=== PATIENT | female | born 2000 | race Two or more races ===

== ENCOUNTER 2018-10-04 12:17 | Emergency (ER) | payer SELFPAY ==
[~2018-10-04] VITALS: Ht 165.1 cm; Wt 90.7 kg
--- NOTE | 2018-10-04 13:28 | PHYS DOC ---
Past Medical History Past Medical History: No Pertinent History Past Surgical History: No Surgical History Alcohol Use: None Drug Use: None Adult General Chief Complaint Chief Complaint: VOMITING IN HPI HPI 17-year-old female presents to ER with complaints N/V/D since Tuesday-and thinks she is approximately 7 weeks . She reports last week she had a positive urine test at [facility]. Patient reports her symptoms started Rey and she has had multiple episodes of vomiting and had diarrhea start yesterday. Patient reports over the past 2 days she has had some vaginal spotting as she had blood on her toilet paper and in her panties. Patient reports she has had intermittent lower abdominal cramping over the past few days. At this time patient is denying any abdominal pain but is stating she feels nauseated. Patient denies fever, dysuria, or fatigue. LMP 08/10/18. 1 para 0. Review of Systems Review of Systems Constitutional: Denies fever or chills [] HENT: Denies sore throat [] Respiratory: Denies cough or shortness of breath [] Cardiovascular: Nice chest pain or palpitations GI: Denies bloody stools. Reports lower abdominal cramping, nausea and vomiting , and diarrhea. At time of initial exam denies abdominal pain : Denies dysuria or hematuria. Reports having blood on toilet paper and pain is over the past couple of days reporting small amount denying active vaginal bleeding. Musculoskeletal: Denies back pain Integument: Denies rash, swelling or skin lesions [] Neurologic: Denies headache, focal weakness or sensory changes. Denies dizziness Endocrine: Denies polyuria or polydipsia [] All other systems were reviewed and found to be within normal limits, except as documented in this note. Current Medications Current Medications Current Medications Medications (Trade) Dose Ordered Sig/John Start Time Stop Time Status Last Admin Dose Admin Metoclopramide HCl (Reglan Vial) 10 mg 1X ONCE 10/04/18 13:30 10/04/18 14:01 DC 10/04/18 13:30 10 MG Ondansetron HCl (Zofran) 4 mg 1X ONCE 10/04/18 16:15 10/04/18 16:16 DC Sodium Chloride 1,000 ml @ 1,000 mls/hr 1X ONCE 10/04/18 13:30 10/04/18 14:29 DC 10/04/18 14:14 1,000 MLS/HR Allergies Allergies Allergies Coded Allergies Type Severity Reaction Last Updated Verified No Known Drug Allergies 10/04/18 No Physical Exam Physical Exam Constitutional: Well developed, well nourished, no acute distress, non-toxic appearance. [] HENT: Normocephalic, atraumatic, oropharynx dry/pink, nose normal. [] Eyes: Pupils equal, conjunctiva normal, no discharge. [] Neck: Normal range of motion, no tenderness, supple, no stridor. [] Cardiovascular: Heart rate regular rhythm, no murmur [] Lungs & Thorax: Bilateral breath sounds clear to auscultation. Resp. equal/ nonlabored Abdomen: Bowel sounds normal, soft-no distention or rigidity, no tenderness Skin: Warm, dry, no erythema, no rash. [] Back: No tenderness, no CVA tenderness. [] Extremities: No tenderness, no cyanosis, no clubbing, ROM intact, no edema. [] Neurologic: Alert and oriented X 3, normal motor function, normal sensory function, no focal deficits noted. [] Psychologic: Affect normal, judgement normal, mood normal. [] Current Patient Data Vital Signs Vital Signs Date Time Temp Pulse Resp B/P (MAP) Pulse Ox O2 Delivery O2 Flow Rate FiO2 10/04/18 17:15 67 16 120/71 (87) 98 Room Air 10/04/18 13:14 98.2 98.2 Lab Values Laboratory Tests Test 10/04/18 12:55 10/04/18 13:00 10/04/18 14:35 10/04/18 14:50 Urine Collection Type Unknown Urine Color Marina Urine Clarity Cloudy Urine pH 7.5 Urine Specific Shafer >=1.030 Urine Protein 30 mg/dL (NEG-TRACE) Urine Glucose (UA) Negative mg/dL (NEG) Urine Ketones (Stick) >=80 mg/dL (NEG) Urine Blood Negative (NEG) Urine Nitrite Negative (NEG) Urine Bilirubin Small (NEG) Urine Urobilinogen Dipstick 1.0 mg/dL (0.2 mg/dL) Urine Leukocyte Esterase Moderate (NEG) Urine RBC 0 /HPF (0-2) Urine WBC 1-4 /HPF (0-4) Urine Squamous Epithelial Cells Many /LPF Urine Bacteria Few /HPF (0-FEW) Urine Mucus Marked /LPF POC Urine HCG, Qualitative Hcg positive (Negative) Maternal Serum HCG Beta Subunit 03992 mIU/mL (0-5) H Sodium Level 138 mmol/L (136-145) Potassium Level 3.7 mmol/L (3.5-5.1) Chloride Level 102 mmol/L (98-107) Carbon Dioxide Level 24 mmol/L (21-32) Anion Gap 12 (6-14) Blood Urea Nitrogen 14 mg/dL (7-20) Creatinine 0.7 mg/dL (0.6-1.0) Estimated GFR (Cockcroft-Gault) 107.8 BUN/Creatinine Ratio 20 (6-20) Glucose Level 97 mg/dL (70-99) Calcium Level 9.1 mg/dL (8.5-10.1) Total Bilirubin 0.7 mg/dL (0.2-1.0) Aspartate Amino Transferase (AST) 16 U/L (15-37) Alanine Aminotransferase (ALT) 28 U/L (14-59) Alkaline Phosphatase 86 U/L (46-116) Total Protein 6.9 g/dL (6.4-8.2) Albumin 3.6 g/dL (3.4-5.0) Albumin/Globulin Ratio 1.1 (1.0-1.7) Lipase 83 U/L (73-393) White Blood Count 11.2 x10^3/uL (4.0-11.0) H Red Blood Count 4.19 x10^6/uL (3.50-5.40) Hemoglobin 13.2 g/dL (12.0-15.5) Hematocrit 37.9 % (36.0-47.0) Mean Corpuscular Volume 90 fL (79-100) Mean Corpuscular Hemoglobin 31 pg (25-35) Mean Corpuscular Hemoglobin Concent 35 g/dL (31-37) Red Cell Distribution Width 12.8 % (11.5-14.5) Platelet Count 248 x10^3/uL (140-400) Neutrophils (%) (Auto) 79 % (31-73) H Lymphocytes (%) (Auto) 13 % (24-48) L Monocytes (%) (Auto) 7 % (0-9) Eosinophils (%) (Auto) 1 % (0-3) Basophils (%) (Auto) 1 % (0-3) Neutrophils # (Auto) 8.8 x10^3uL (1.8-7.7) H Lymphocytes # (Auto) 1.5 x10^3/uL (1.0-4.8) Monocytes # (Auto) 0.8 x10^3/uL (0.0-1.1) Eosinophils # (Auto) 0.1 x10^3/uL (0.0-0.7) Basophils # (Auto) 0.1 x10^3/uL (0.0-0.2) Laboratory Tests 10/04/18 14:50 Laboratory Tests 10/04/18 14:35 Microbiology 10/04/18 Wet Prep - Final, Complete EKG EKG [] Radiology/Procedures Radiology/Procedures Pelvic Exam: VANITA Vann present 1350 Abdomen: Nontender External Genitalia: Normal Skin-no lesions or rash Speculum: Normal vaginal mucosa-no erythema, cervix closed, normal cervical discharge-scant amount of white discharge in vaginal vault no visible blood or clots Bimanual: No adnexal masses or tenderness, No CMT PROCEDURE: OB <14 WKS W/TV Obstetrical ultrasound, 10/04/2017: HISTORY: , vomiting Transabdominal and transvaginal scans were obtained. The uterus contains a 2 cm fluid collection compatible with a gestational sac. This suggests a gestational age of 6 weeks and 6 days. There are faint echoes within the fluid. No yolk sac or pole is evident. This is abnormal indicating a nonviable . The ovaries are within normal limits in size. There is blood flow in both ovaries. No adnexal mass is seen. No free fluid is evident in the pelvis. IMPRESSION: Nonviable early intrauterine . Electronically signed by: Alvin Antoine MD (10/04/2018 3:53 PM) [facility] DICTATED and SIGNED BY: ALVIN ANTOINE MD DATE: 10/04/18 1548 Course & Med Decision Making Course & Med Decision Making Pertinent Labs and Imaging studies reviewed. (See chart for details) Patient was evaluated in the ER for complaints of ongoing nausea and vomiting since Tuesday and having prior urine test came in for further evaluation. Patient had labs and treatment with IV fluids and nausea medication. With patient reporting she had had vaginal spotting ultrasound was obtained. Test results were discussed with patient. Patient's ultrasound report "uterus contains a 2 cm fluid collection compatible with a gestational sac. This suggests a gestational age of 6 weeks and 6 days. There are faint echoes within the fluid. No yolk sac or pole is evident. This is abnormal indicating a nonviable ". This was discussed indepth- [place] [id number]. UA with moderate leuks >80 ketones neg blood and micro with 1-4 WBCs. Patient was O+. Wet mount neg. for yeast/trich and GC/Chlam. cxs pending. Discussed need for f/u with [facility] for recheck of HCG quant and for further care for concerns nonviable per US results. Pt verbalized understanding and has handled test results well. Pt had NL pelvic exam with no blood in vaginal vault with cervix closed. Pt during discharge discussion denied abd pain and reports she was feeling much better following IV flds/ nausea meds. Pt was nontoxic in appearance and had tolerated PO challenge without c/o nausea or episodes of vomiting. Will provide [facility] referral information with discharge paperwork. Patient will also be provided with community clinic information for follow-up purposes as well. Patient advised on calling as soon as possible to schedule appointment with [facility] HE[facility]GER to be evaluated within 48 hours patient verbalized understanding and plans to call us soon as possible. Encouraged to increase fluid intake. Patient advised on Tylenol for pain as needed. Education provided on signs and symptoms to return to ER for an discharge instructions were discussed. Dragon Disclaimer Dragon Disclaimer This electronic medical record was generated, in whole or in part, using a voice recognition dictation system. Departure Departure Impression: Primary Impression: Threatened miscarriage in early Additional Impression: UTI (urinary tract infection) Disposition: 01 HOME, SELF-CARE Condition: STABLE Referrals: NO PCP (PCP) LETTY ESTES Jr, MD Patient Instructions: Threatened Miscarriage, Urinary Tract Infection Additional Instructions: Drink plenty of fluids and eat well-balanced meal. You need to have your hCG quantitative level which shows the level of your rechecked via lab work. This should be done in 48 hours by your OB/ SEARCH ENGINE MARKETING SPECIALIST if unable to get into your doctor return to the emergency department to have recheck of this blood test. Call as soon as possible to schedule appointment with [facility] HE[facility]GER. Scripts Nitrofurantoin Monohyd/M-Cryst (MACROBID 100 MG CAPSULE) 100 Mg Capsule 1 CAP PO BID, #10 CAP 0 Refills Prov: SCHUYLER FRANCISCO APRN 10/04/18 Problem Qualifiers SCHUYLER FRANCISCO APRN Oct 04, 2018 13:28
[2018-10-04] MEDS ORDERED: METOCLOPRAMIDE HCL 10 MG/2 ML VIAL. IV ONE (13:30)
[2018-10-04] MEDS ORDERED: IV NORMAL SALINE 1000ML BAG 1,000 ML IV ONE (13:30)
[2018-10-04 13:46] LABS: BILIRUBIN,URINE SMALL (NEG); CLARITY,URINE CLOUDY; COLOR,URINE AMBER; NITRITE,URINE NEGATIVE (NEG); PH,URINE 7.5; PROTEIN,URINE 30 mg/dL (NEG-TRACE)
[2018-10-04 14:31] LABS: BACTERIA,URINE FEW /HPF (0-FEW); RBC,URINE 0 /HPF (0-2); SQUAMOUS EPITHELIAL CELL,UR MANY /LPF
[2018-10-04 15:04] LABS: CALCIUM 9.1 mg/dL (8.5-10.1); CREATININE 0.7 mg/dL (0.6-1.0); GFR 107.8; POTASSIUM 3.7 mmol/L (3.5-5.1)
[2018-10-04 15:07] LABS: BASO # 0.1 x10^3/uL (0.0-0.2); BASO % 1 % (0-3); EOS # 0.1 x10^3/uL (0.0-0.7); EOS % 1 % (0-3); HEMATOCRIT 37.9 % (36.0-47.0); HEMOGLOBIN 13.2 g/dL (12.0-15.5); LYMPH # 1.5 x10^3/uL (1.0-4.8); LYMPH % 13 % (24-48); MEAN CORPUSCULAR HEMOGLOBIN 31 pg (25-35); MEAN CORPUSCULAR HGB CONC 35 g/dL (31-37); MEAN CORPUSCULAR VOLUME 90 fL (79-100); MONO # 0.8 x10^3/uL (0.0-1.1); MONO % 7 % (0-9); NEUT # 8.8 x10^3uL (1.8-7.7); NEUT % 79 % (31-73); PLATELET COUNT 248 x10^3/uL (140-400); RED BLOOD COUNT 4.19 x10^6/uL (3.50-5.40); RED CELL DISTRIBUTION WIDTH 12.8 % (11.5-14.5); WHITE BLOOD COUNT 11.2 x10^3/uL (4.0-11.0)
[2018-10-04 15:13] LABS: ALBUMIN 3.6 g/dL (3.4-5.0); ALBUMIN/GLOBULIN RATIO 1.1 (1.0-1.7); TOTAL BILIRUBIN 0.7 mg/dL (0.2-1.0); TOTAL PROTEIN 6.9 g/dL (6.4-8.2)
--- NOTE | 2018-10-04 15:57 | RAD ---
Obstetrical ultrasound, 10/04/2017: HISTORY: , vomiting Transabdominal and transvaginal scans were obtained. The uterus contains a 2 cm fluid collection compatible with a gestational sac. This suggests a gestational age of 6 weeks and 6 days. There are faint echoes within the fluid. No yolk sac or pole is evident. This is abnormal indicating a nonviable . The ovaries are within normal limits in size. There is blood flow in both ovaries. No adnexal mass is seen. No free fluid is evident in the pelvis. IMPRESSION: Nonviable early intrauterine . Electronically signed by: Alvin Antoine MD (10/04/2018 3:53 PM) [facility]
[2018-10-04] MEDS ORDERED: ONDANSETRON PF 4 MG/2 ML VIAL. IV ONE (16:15)
[2018-10-04 17:15] VITALS: BP 120/71
[2018-10-04] MEDS ORDERED: NITR100C62 PO (17:28)
[2018-10-05 13:25] LABS: GC PROBE Negative (Negative)
== END 2018-10-04 17:45 | disposition home or self-care (01) ==
LOC: ER 12:17
DX: O20.0 Threatened abortion (principal); O23.41 Unspecified infection of urinary tract in pregnancy, first trimester; O21.8 Other vomiting complicating pregnancy; R19.7 Diarrhea, unspecified; Z3A.01 Less than 8 weeks gestation of pregnancy
CPT/HCPCS: 36415; 76801; 76817; 80053; 81001; 81025; 83690; 84702; 85025; 86850; 86900; 86901; 87086; 87491; 87591; 96361; 96374; 99284; J2765; J7030; Q0111

== ENCOUNTER 2020-02-25 20:28 | Emergency (ER) | payer MEDICAID ==
[~2020-02-25 20:28] MED LIST: NITR100C62 PO
== END 2020-02-25 20:49 | disposition left against medical advice (07) ==
LOC: ER 20:28
DX: N93.9 Abnormal uterine and vaginal bleeding, unspecified (principal); Z53.21 Procedure and treatment not carried out due to patient leaving prior to being seen by health care provider
CPT/HCPCS: 81025